=== PATIENT | female | born 1990 | race American Indian/Alaskan Native ===

== ENCOUNTER 2016-05-15 03:38 | Inpatient (IN) | payer OTHER ==
[2016-05-15 04:27] LABS: Basophils % (Auto) 0.4 % (0.0-1.8); Eosinophils % (Auto) 0.2 % (0.0-4.3); Hemoglobin 10.6 gm/dl (10.1-14.3); Mean Corpuscular HGB Conc 34 % (30-34); Mean Corpuscular Hemoglobin 28 pg (28-32); Mean Corpuscular Volume 82 fl (79-97); Platelet Count 235 K/mm3 (140-440); Red Blood Count 3.77 M/mm3 (3.65-5.03); Red Cell Distribution Width 14.1 % (13.2-15.2); White Blood Count 11.2 K/mm3 (4.5-11.0)
[2016-05-15 04:42] LABS: Alanine Aminotransferase 5 units/L (7-56); Albumin 3.3 g/dL (3.9-5); Albumin/Globulin Ratio 0.9 %; Alkaline Phosphatase 308 units/L (35-129); Bilirubin,Total 0.5 mg/dL (0.1-1.2); Blood Urea Nitrogen 4 mg/dL (7-17); Calcium 8.7 mg/dL (8.4-10.2); Carbon Dioxide 16 mmol/L (22-30); Chloride 100.5 mmol/L (98-107); Glucose 99 mg/dL (65-100); Lipase 18 units/L (13-60); Potassium 3.6 mmol/L (3.6-5.0); Sodium 137 mmol/L (137-145); Total Protein 7.1 g/dL (6.3-8.2)
[2016-05-15 04:47] LABS: Anion Gap 24 mmol/L
[2016-05-15] MEDS ORDERED: SODIUM CHLORIDE IV ONE (05:14)
[2016-05-15] MEDS ORDERED: LACTATED RINGERS 1,000 ML ONE (05:14)
[2016-05-15] MEDS ORDERED: PITOCin/NS 20 UNIT/1000ML DRIP 1,000 ML IV ONE (05:14)
[2016-05-15] MEDS ORDERED: AMPICILLIN IV ONE (05:14)
--- NOTE | 2016-05-15 05:31 | Event Note ---
Date: 05/15/16 This is a 25-year-old female who presents to the emergency department with complaint of abdominal pain, , and concern for contractions and impending delivery. The patient says that she thinks she is about 14 weeks based on her last menstrual period which was in late January. Patient says that she "broke her water" and that she is having rhythmic contractions. As the 14 week blanca would not be consistent with a viable , we needed to get a better idea of how far along this patient is. The patient was evaluated in the emergency department. She does appear to be having rhythmic abdominal and/or pelvic discomfort. Patient has abdominal distention and appears farther along than 14 weeks. When palpating her abdomen there is a firmness that goes up towards the area just below the xiphoid process and this alone would make the patient greater than 20 weeks' . An ultrasound was placed on the abdomen and there appeared to be a fully formed fetus with a visible heartbeat, a fully formed spinal cord, and the fetus appears at least greater than 20 weeks but more consistent with greater than 30 weeks gestation. For this reason labor and delivery was contacted and they have accepted the patient for transport to their section of the [facility] for evaluation by the DRAWING OPERATOR.
[2016-05-15] MEDS ORDERED: XYLOCAINE 2% INFILTRATI ONE (05:39)
[2016-05-15] MEDS ORDERED: SUBLIMAZE ONE (05:50)
[2016-05-15] MEDS ORDERED: METHERGINE IM ONE (05:55)
[2016-05-15] MEDS ORDERED: HEMABATE IM ONE ×2 (05:59→06:23)
[2016-05-15] MEDS ORDERED: METHERGINE IM PRN (06:23)
[2016-05-15] MEDS ORDERED: NORCO 5/325 PO PRN (06:23)
[2016-05-15] MEDS ORDERED: LANSINOH TP PRN (06:23)
[2016-05-15] MEDS ORDERED: MILK OF MAGNESIA PO PRN (06:23)
[2016-05-15] MEDS ORDERED: TYLENOL PO PRN (06:23)
[2016-05-15] MEDS ORDERED: BENADRYL PO PRN (06:23)
[2016-05-15] MEDS ORDERED: PHENERGAN PR PRN (06:23)
[2016-05-15] MEDS ORDERED: ANUCORT-HC PR PRN (06:23)
[2016-05-15] MEDS ORDERED: DERMOPLAST TP PRN (06:23)
[2016-05-15] MEDS ORDERED: PHENERGAN PO PRN (06:23)
[2016-05-15] MEDS ORDERED: DULCOLAX PR PRN (06:23)
[2016-05-15] MEDS ORDERED: TUCKS PAD TP PRN (06:23)
[2016-05-15] MEDS ORDERED: ZOFRAN IV PRN (06:23)
[2016-05-15] MEDS ORDERED: NACL 0.9% 500 ML 500 ML IV ONE (06:30)
--- NOTE | 2016-05-15 06:34 | Procedure Note ---
OB Delivery Note - Delivery Date of Delivery: 05/15/16 Surgeon: MENDY HOPE Estimated blood loss: other (600 cc's) - Vaginal Delivery presentation: vertex Delivery position: OA Intrapartum events: no care, precipitous labor- <3hr, hemorrhage Delivery induction: none Delivery monitor: external FHT, external uterine Route of delivery: Delivery placenta: spontaneous Delivery cord: 3 umbilical vessels Episiotomy: none Delivery laceration: 2nd degree, vaginal side wall Delivery repair: vicryl Anesthesia: local - Infant A at 1 minute: 8 at 5 minutes: 9 Infant Gender: Male (Del @ 05:50, infant weight is 7#1 or 3206 gms)
--- NOTE | 2016-05-15 06:51 | History and Physical Report ---
History of Present Illness Date of examination: 05/15/16 Date of admission: 05/15/16 05:13 Chief complaint: Precipitous delivery at term History of present illness: A 25-year-old at unknown gestational age presents in active labor with subsequent delivery, she has had no care this . Essential history is patient is status post rupture of her membranes yesterday at 3:30 PM subsequent followed by contractions. She claims she was unaware she was and assumed her contractions were her imminent menstruation. However presented to the emergency room today when she noted vaginal bleeding with more amniotic fluid. Was transferred to [facility] where she subsequently delivered of a term-appearing infant over intact perineum. Bedside sonogram placed at ~ 36-37 weeks gestation by femur length only. Delivery complicated by hemorrhage controlled with Methergine, Hemabate and Pitocin. Patient also has vaginal packing placed at this time. Note that the patient consumed ETOH during this confinement as she claims was unaware of her Past History Past Medical History: thyroid disease (Oral history of thyroid disease in childhood, appears has had no follow-up since) Past Surgical History: no surgical history HEALTH SAFETY AND ENVIRONMENT MANAGER History: denies: chlamydia, gonorrhea, hepatitis B, hepatitis C, HIV, syphilis, trichomonas Social history: single, smoking, alcohol abuse, full code. denies: prescription drug abuse, IV drug use - Obstetrical History : 1 Para: 0 Medications and Allergies Allergies Allergy/AdvReac Type Severity Reaction Status Date / Time bee venom (honey bee) Allergy Swelling Verified 09/04/13 16:18 Penicillins Allergy Itching Verified 09/09/13 20:30 Home Medications Medication Instructions Recorded Confirmed Last Taken Type Naproxen Sodium (Nf) [Anaprox DS 550 mg PO BID PRN #14 tablet 09/04/13 Unknown Rx TAB] Clindamycin [Clindamycin CAP] 300 mg PO BID #20 capsule 09/09/13 Unknown Rx HYDROcodone/APAP 5-325 [Neptune 1 each PO Q6HR PRN #14 tablet 09/09/13 Unknown Rx 5/325 mg] Active Meds: Active Medications Acetaminophen (Tylenol) 650 mg PO Q4H PRN PRN Reason: Pain MILD(1-3)/Fever >100.5/[place]AT[place] Acetaminophen/Hydrocodone Bitart (Neptune 5/325) 2 each PO Q6H PRN PRN Reason: Pain, Moderate (4-6) Benzocaine/Menthol (Dermoplast) 1 spray TP PRN PRN PRN Reason: Episiotomy Pain Bisacodyl (Dulcolax) 10 mg FL BID PRN PRN Reason: Constipation Diphenhydramine HCl (Benadryl) 25 mg PO Q6H PRN PRN Reason: Itching Diphtheria/Tetanus/Acell Pertussis (Boostrix) 0.5 ml IM .ONCE ONE Stop: 05/16/16 06:01 Docusate Sodium (Colace) 100 mg PO BID SHAYLA Ferrous Sulfate (Feosol) 325 mg PO BID SHAYLA Hydrocortisone Acetate (Anucort-Hc) 25 mg FL BID PRN PRN Reason: Hemorrhoids Oxytocin/Sodium Chloride (Pitocin/Ns 20 Unit/1000ml Drip) 1,000 mls @ 250 mls/ hr IV TITR SHAYLA Ibuprofen (Motrin) 600 mg PO Q6H SHAYLA Magnesium Hydroxide (Milk Of Magnesia) 30 ml PO HS PRN PRN Reason: Constipation Measles/Mumps/Rubella Vaccine Live (M-M-R Ii Vaccine) 0.5 ml SUB-Q .ONCE ONE Stop: 05/16/16 06:01 Methylergonovine Maleate (Methergine) 0.2 mg IM Q4H PRN PRN Reason: Uterine Bleeding Multi-Ingredient Ointment (Lansinoh) 1 applic TP PRN PRN PRN Reason: Sore Nipples Multivitamins/Iron/Calcium ( Vitamin) 1 each PO QDAY [facility] Ondansetron HCl (Zofran) 4 mg IV Q8H PRN PRN Reason: Nausea And Vomiting Promethazine HCl (Phenergan) 25 mg PO Q6H PRN PRN Reason: Nausea And Vomiting Promethazine HCl (Phenergan) 25 mg FL Q6H PRN PRN Reason: Nausea And Vomiting Senna/Docusate Sodium (Senokot S) 2 tab PO Q12H [facility] Sodium Chloride (Sodium Chloride Flush Syringe 10 Ml) 10 ml IV PRN NR Stop: 05/16/16 06:59 Witch Haley/Glycerin (Tucks Pad) 1 each TP PRN PRN PRN Reason: Hemorrhoid/cleansing/soothing Review of Systems Constitutional: weight gain, no fever, no chills Cardiovascular: no chest pain, no syncope, no lightheadedness, no shortness of breath, no dyspnea on exertion, no high blood pressure Respiratory: no excessive sputum, no shortness of breath, no dyspnea on exertion - Vital Signs Vital signs: Vital Signs Pulse Pulse Ox 75 99 05/15/16 05:16 05/15/16 05:16 Temp Pulse Resp BP Pulse Ox 82 98 05/15/16 05:24 05/15/16 05:24 - Physical Exam Abdomen: Positive: normal appearance, soft. Negative: tenderness, guarding, rigidity Genitourinary (Female): Positive: normal external genitalia Results Result Diagrams: 05/15/16 04:15 05/15/16 04:15 Abnormal lab results 05/15/16 05/15/16 Range/Units 04:15 04:15 WBC 11.2 H (4.5-11.0) K/mm3 Bollinger % (Auto) 7.5 H (0.0-7.3) % Seg Neutrophils % 73.1 H (40.0-70.0) % Seg Neutrophils # 8.2 H (1.8-7.7) K/mm3 Carbon Dioxide 16 L (22-30) mmol/L BUN 4 L (7-17) mg/dL Creatinine 0.4 L (0.7-1.2) mg/dL ALT 5 L (7-56) units/L Alkaline Phosphatase 308 H (35-129) units/L Albumin 3.3 L (3.9-5) g/dL All other labs normal. Assessment and Plan PPD # 0 : 25 y/o s/p -No care -PPH (EBL ~ 600 mls) -Vag pack in place P: -Keep Vag pack for ~ 1 hr -Repeat H/H at 10:00 -Obtain labs including and UDS -TSH now -Routine PP care for now - Patient Problems (1) Precipitate labor, with delivery Current Visit: Yes Status: Acute (2) No care in current Current Visit: Yes Status: Acute (3) PPH ( hemorrhage) Current Visit: Yes Status: Acute
[2016-05-15] MEDS ORDERED: PITOCin/NS 20 UNIT/1000ML DRIP 1,000 ML IV SCH (07:00)
[2016-05-15] MEDS ORDERED: SODIUM CHLORIDE FLUSH SYRINGE 10 ML IV NR (07:00)
[2016-05-15] MEDS ORDERED: SUBLIMAZE IV ONE ×2 (07:02→07:15)
[2016-05-15] MEDS ORDERED: LACTATED RINGERS 1,000 ML IV SCH (08:00)
[2016-05-15 08:46] LABS: HIV-1 Antigen p24 Non React (Non React); HIVR-1/2 Ab Non React (Non React)
[2016-05-15 08:49] LABS: Hematocrit 33.1 % (30.3-42.9); Hemoglobin 11.1 gm/dl (10.1-14.3)
--- NOTE | 2016-05-15 09:03 | Event Note ---
Date: 05/15/16 Patient with noted elevated systolic blood pressure to the ~ 160s and diastolic less than 110 (~ 102), she is asymptomatic for headache, scotomata or epigastric discomfort. Patient had continuous BP monitoring with range 130s to 140s systolic, diastolic less than 100. Plan at this point is to continue observation. If blood pressure reaches severe range will consider starting her on magnesium and antihypertensives. Vaginal Pack was removed with no further bleeding noted
--- NOTE | 2016-05-15 10:42 | Ultrasound Report ---
OB ULTRASOUND GREATER THAN 14 WEEKS: INDICATION: Abdominal pain. COMPARISON: None similar at this institution. TECHNIQUE: Transabdominal grayscale ultrasound with Doppler interrogation. Gestation: starr Position: cephalic Heart Rate: 130 BPM The following are not demonstrated due to maternal body habitus or lie: unable to complete exam due to patient in active labor and pushing. FL: 7.22 cm = 37 w 0 d LMP: uncertain CONCLUSION: Single, viable intrauterine gestation, currently in a cephalic lie and approximately 37 weeks and 0 days gestation on this limited, incomplete exam due to patient in active labor. Please correlate. Thank you for the opportunity to participate in this patient's care.
[2016-05-15] MEDS: MOTRIN PO SCH (12:20)
[2016-05-15] MEDS: PRENATAL VITAMIN PO SCH (12:22)
[2016-05-15] MEDS: FEOSOL PO SCH ×2 (12:23→23:50)
[2016-05-15] MEDS: COLACE PO SCH ×2 (13:40→22:00)
[2016-05-15] MEDS: SENOKOT S PO SCH (13:40)
[2016-05-15 14:04] LABS: Urine Drugs of Abuse Note Disclamer
[2016-05-15 14:17] LABS: Bilirubin,Urine NEG (Negative); Blood,Urine LG (Negative); Ketones,Urine NEG (Negative); Leukocyte Esterase,Urine LG (Negative); Nitrite,Urine NEG (Negative); Urobilinogen,Urine < 2.0 mg/dL (<2.0)
[2016-05-15 14:25] LABS: Bacteria,Urine 4+ /HPF (Negative); Mucus,Urine FEW /HPF
[2016-05-15 18:25] LABS: Hematocrit 28.9 % (30.3-42.9); Hemoglobin 9.5 gm/dl (10.1-14.3)
[2016-05-16] MEDS: MOTRIN PO SCH ×3 (00:31→14:30)
[2016-05-16] MEDS ORDERED: BOOSTRIX IM ONE (06:00)
[2016-05-16] MEDS ORDERED: M-M-R II VACCINE SUB-Q ONE (06:00)
--- NOTE | 2016-05-16 10:42 | Progress Note ---
Assessment and Plan PPD # 1 : 25 y/o s/p -Doing well Issues: -No care -PPH (EBL ~ 600 mls) -Vag pack in place P: -Continue routine care -Anticipate discharge in 24-48 hours - Patient Problems (1) Precipitate labor, with delivery Current Visit: Yes Status: Acute (2) No care in current Current Visit: Yes Status: Acute (3) PPH ( hemorrhage) Current Visit: Yes Status: Acute Subjective - Subjective Date of service: 05/16/16 Principal diagnosis: PPD # 1 s/p Interval history: Patient seen and exam, stable doing well. Adequate bladder bowel function ambulating without difficulty Patient reports: appetite normal, voiding normally, pain well controlled, ambulating normally, no dizzy ambulation : doing well Objective - Vital Signs Latest vital signs: Vital Signs Temp Pulse Pulse Resp BP 05/16/16 08:19 98.3 F 86 18 120/78 05/16/16 06:38 18 05/16/16 01:00 98.5 F 76 20 114/70 05/16/16 00:05 18 05/15/16 23:05 18 05/15/16 16:50 98.3 F 70 20 128/90 05/15/16 11:31 97.6 F 76 18 120/76 Intake and Output 05/15/16 05/16/16 05/16/16 22:59 06:59 14:59 Intake Total 740 480 Output Total 500 700 Balance 240 -220 Intake: IV 500 PITOCin/NS 20 UNIT/1000ML 500 DRIP 1,000 ML @ 250 mls/ hr IV TITR SHAYLA Rx#: [id number] Oral 240 480 Output: Urine 500 700 Void 500 700 Other: Total, Intake Amount 120 240 Total, Output Amount 500 700 Voiding Method Toilet # Voids Void 1 # Bowel Movements 1 - Exam Abdomen: Present: normal appearance, soft. Absent: distention, tenderness, guarding, rigidity Uterus: Present: fundal height below umbilicus. Absent: tenderness Extremities: Present: normal - Labs Labs: Abnormal lab results 05/15/16 05/15/16 Range/Units 13:50 18:10 Hgb 9.5 L (10.1-14.3) gm/dl Hct 28.9 L (30.3-42.9) % Urine WBC (Auto) 85.0 H (0.0-6.0) /HPF
--- NOTE | 2016-05-16 10:44 | Discharge Summary ---
Providers - Providers Date of Admission: 05/15/16 05:13 Date of discharge: 05/17/16 Attending physician: RUBINA BALL 05/15/16 17:28 Consult to Case Management [CONS] Routine Services Needed at Discharge: Registered Nurse Notified:: no Phone number called:: [phone] Was contact made?: No Time called:: 17:28 Comment:: no answer Additional Physician Instructions: client NPC positive UDS Primary care physician: CAR RUNNER Hospitalization Reason for admission: active labor, rupture of membranes Delivery: Episiotomy: none Laceration: 2nd degree Incision: dry, intact Other procedures: none complications: none Discharge diagnosis: IUP at term delivered baby: male Hospital course: Uncomplicated hospital course Condition at discharge: Good Disposition: DISCHARGED TO HOME OR SELFCARE - Discharge Diagnoses (1) Precipitate labor, with delivery Status: Acute (2) No care in current Status: Acute (3) PPH ( hemorrhage) Status: Acute Plan - Provider Discharge Summary Activity: no sex for 6 weeks, no heavy lifting 4 weeks, no strenuous exercise Diet: routine Additional instructions: [] Smoking cessation referral if applicable(refer to patient education folder for contact #) [] Refer to [facility]'s [facility] Booklet Call your doctor immediately for: * Fever > 100.5 * Heavy vaginal bleeding ( >1 pad per hour) * Severe persistent headache * Shortness of breath * Reddened, hot, painful area to leg or breast * Drainage or odor from incision. * Keep incision clean and dry at all times and follow doctor's instructions regarding bathing/showering - Follow up plan Follow up: [facility] RUBINA BALL MD [Staff Physician] - 6 Weeks
[2016-05-16] MEDS: PRENATAL VITAMIN PO SCH (14:30)
[2016-05-16] MEDS: FEOSOL PO SCH (14:30)
[2016-05-16] MEDS: COLACE PO SCH (14:30)
[2016-05-17] MEDS: FEOSOL PO SCH (00:36)
[2016-05-17] MEDS: SENOKOT S PO SCH ×2 (00:36→11:01)
[2016-05-17] MEDS: COLACE PO SCH ×2 (00:36→10:52)
[2016-05-17] MEDS: MOTRIN PO SCH ×2 (06:18)
[2016-05-17 09:17] VITALS: BP 121/76
[2016-05-17] MEDS: PRENATAL VITAMIN PO SCH (10:52)
== END 2016-05-17 12:05 | disposition home or self-care (01) | DRG 774 ==
LOC: ED 03:38 → TRG 03:38 → EDSTATUS 05:10 → LD 05:13 → OB 08:49
PROVIDERS: ADMIT Obstetrics & Gynecology; ATTEND Obstetrics & Gynecology
PROC: 10E0XZZ Delivery of Products of Conception, External Approach (ICD-10-PCS; principal; 2016-05-15)
PROC: 0KQM0ZZ Repair Perineum Muscle, Open Approach (ICD-10-PCS; 2016-05-15)
DX: O62.3 Precipitate labor (principal); O72.1 Other immediate postpartum hemorrhage; O70.1 Second degree perineal laceration during delivery; Z88.0 Allergy status to penicillin; Z88.8 Allergy status to other drugs, medicaments and biological substances; Z79.899 Other long term (current) drug therapy; O09.33 Supervision of pregnancy with insufficient antenatal care, third trimester; Z3A.36 36 weeks gestation of pregnancy; Z37.0 Single live birth
CPT/HCPCS: 36415; 76815; 80053; 80307; 81001; 83690; 84443; 84703; 85014; 85018; 85025; 86592; 86706; 86762; 86803; 86850; 86900; 86901; 86920; 87806; 90471; 90707; 90715; 99211; A6250; G0463; J0290; J2210; J2590; J3010; J7120